=== PATIENT | male | born 1990 | race Caucasian/White ===

== ENCOUNTER 2024-04-12 07:31 | Emergency (ER) | payer SELFPAY ==
[~2024-04-12] VITALS: Ht 185.4 cm; Wt 88.1 kg
[2024-04-12 07:40] VITALS: BP 123/67; PULSE 77; RESP 17; TEMP 97.8; O2SAT 98
[2024-04-12 08:37] LABS: APPEARANCE,URINE CLEAR (CLEAR); BILIRUBIN,URINE NEGATIVE (NEGATIVE); BLOOD, URINE NEGATIVE (NEGATIVE); COLOR,URINE YELLOW (YELLOW); LEUKOCYTE ESTERASE ,URINE TRACE (NEGATIVE); NITRITE, URINE NEGATIVE (NEGATIVE); PROTEIN,URINE NEGATIVE (NEGATIVE); UGLUCOSE NEGATIVE (NEGATIVE); UROBILINOGEN,URINE 0.2 EU/dL (0.2 - 1)
[2024-04-12] MEDS ORDERED: LIDOCAINE MPF 1% 5 ML ONE (10:02)
[2024-04-12] MEDS ORDERED: cefTRIAXone 500 MG VIAL ONE (10:02)
[2024-04-12] MEDS ORDERED: DOXY-690 PO (10:07)
[2024-04-12] MEDS: cefTRIAXone 500 MG in LIDOCAINE MPF 1% 1 ML IM ONE (10:09)
[2024-04-12 10:35] VITALS: BP 119/72; PULSE 81; RESP 18; TEMP 97.8; O2SAT 98
== END 2024-04-12 10:35 | disposition home or self-care (01) ==
LOC: MED 07:31
DX: N45.1 Epididymitis (principal); Z79.899 Other long term (current) drug therapy
CPT/HCPCS: 76870; 81003; 87491; 96372; 99285; J0696; J2001; Q0092